=== PATIENT | female | born 1990 | race Two or more races ===

== ENCOUNTER 2020-08-05 12:23 | Emergency (ER) | payer OTHER ==
[2020-08-05] MEDS ORDERED: ACETAMINOPHEN 325 MG TAB PO ONE (13:30)
[2020-08-05 15:37] VITALS: BP 122/62
== END 2020-08-05 16:14 | disposition home or self-care (01) ==
LOC: ER 12:23
DX: U07.1 COVID-19 (principal)
CPT/HCPCS: 71045; 87804